=== PATIENT | male | born 1955 | race Two or more races ===

== ENCOUNTER 2021-01-08 11:39 | Outpatient (CLI) | payer OTHER | END 2021-01-08 11:47 | disposition home or self-care (01) | LOC: RAD 11:39 | PROVIDERS: ATTEND Orthopaedic Surgery | DX: M25.511 Pain in right shoulder (principal); M75.51 Bursitis of right shoulder ==

== ENCOUNTER 2021-01-28 15:41 | Outpatient (CLI) | payer OTHER | END 2021-01-28 15:46 | disposition home or self-care (01) | LOC: RAD 15:41 | PROVIDERS: ATTEND Orthopaedic Surgery | DX: M50.323 Other cervical disc degeneration at C6-C7 level (principal) ==